=== PATIENT | female | born 1990 | race Asian ===

== ENCOUNTER 2019-12-26 09:16 | Outpatient (CLI) | payer OTHER, SELFPAY ==
--- NOTE | ~2019-12-26 | XR_ITS ---
EXAMINATION: XR lumbar puncture diagnostic DATE: 12/26/2019 12:32 INDICATION: Headaches TECHNIQUE: The procedure including the risks and benefits was discussed with the patient. Risks discu ssed included spinal headache, cerebrospinal fluid leak, bleeding, and infection. The patient underst ood the risks and agreed to proceed. A timeout was performed to verify the patient's name, date of , and procedure to be performed. The skin overlying the L3-L4 level was prepped and draped in usual sterile fashion. Subcutaneous 1% lidocaine was used for local anesthesia. A 22 gauge spinal n eedle was advanced under fluoroscopic guidance. The needle was removed and the entry site was cleaned and dressed. There were no immediate complications. The patient was taken to the nursing area for o bservation. FINDINGS: Real-time fluoroscopy demonstrates the needle at the L3-L4 level. Opening pressure was 14. (Normal range is variably defined as 6-20 cm water and up to 25 cm water in obese patients. Pressure >25 cm water is one of the modified Dandy criteria for idiopathic intracranial hypertension). 15.5 mL of clear, colorless fluid was collected in 4 tubes. IMPRESSION: 1. Successful fluoro-guided lumbar puncture. Reviewed, dictated and finalized at location A.
[2019-12-26 10:47] LABS: Mean Platelet Volume 10.2 fl (7.4-10.4); Platelet Count Result 420 k/mm3 (150-375)
[2019-12-26 10:57] LABS: INR 0.9
[2019-12-26 12:30] VITALS: BP 128/90; PULSE 84; RESP 14; TEMP 36.2; O2SAT 96
[2019-12-26 12:36] VITALS: BP 135/85; PULSE 66; PULSE 67; RESP 16; O2SAT 94; O2SAT 98
[2019-12-26 12:56] LABS: Appearance CSF Clear (Clear); CSF source CSF; Color CSF Colorless (Colorless); Glucose CSF 68 mg/dL (40-70); Total Protein CSF 31 mg/dL (12-60)
[2019-12-26 12:57] LABS: Nucleated Cell CSF 0 /uL (0-5); Red Blood Cell CSF 0 (0-2)
[2019-12-26 13:30] VITALS: BP 121/76; PULSE 64; RESP 15; TEMP 36.4; O2SAT 94
[2019-12-26 14:15] VITALS: BP 124/82; PULSE 69; RESP 14; TEMP 36.6; O2SAT 96
--- NOTE | 2019-12-26 14:15 | SUR.PHASEII ---
Called Dr Nobles to inform pt doing well and ready to be discharged
--- NOTE | 2019-12-26 14:46 | SUR.PHASEII ---
1430 Dr Nobles came up to ask pt if she is having headaches; pt denied . 1440 Discharged pt by wheelchair
== END 2019-12-26 09:17 | disposition home or self-care (01) ==
PROVIDERS: Radiology Diagnostic Radiology; Visit Provider Psychiatry & Neurology Neurology
DX: R51 Headache (principal)
CPT/HCPCS: 36415; 62328; 82945; 84157; 85049; 85610; 87070; 89051